=== PATIENT | male | born 1940 | race Caucasian/White ===

== ENCOUNTER 2019-10-04 13:17 | Inpatient (IN) ==
[2019-10-04] MEDS ORDERED: IOPAMIDOL 100 ML BOTTLE IV ONE (13:18)
--- NOTE | 2019-10-04 15:15 | Emergency Department Note ---
Abdominal Pain HPI - General Chief Complaint: Abdominal Pain Stated Complaint: UTI, bowel infection Time Seen by Provider: 10/04/19 14:19 Source: EMS Mode of arrival: EMS - History of Present Illness HPI Narrative: Brought by EMS. Described either having a urinary tract or bowel infection because of his abdominal pain and that is the primary reason he is coming here to the emergency room. He has a history of C. difficile in July he tells the social services manager. He lives in his own RV. He has a son who works who checks on him. Reportedly some history of dementia as well. Pulse in triage was 110. - Related Data Home Medications Medication Instructions Recorded Confirmed Aspirin [Lo-Dose Aspirin EC] 81 mg PO DAILY 10/04/19 10/04/19 Allergies Allergy/AdvReac Type Severity Reaction Status Date / Time Penicillins Allergy Mild HIVES Verified 10/04/19 13:24 omeprazole Allergy Unknown Hives Verified 10/04/19 13:24 Abdominal Pain PMH - Past Medical History [facility] Narrative: Medical History (Last Updated 10/04/19 @ 15:18 by Dangelo Casanova DO) CAD (coronary artery disease) (Chronic) Weight loss, unintentional (Chronic) Exposure to Agent Millard (Chronic) Cigarette smoker (Chronic) Depression, major, recurrent (Chronic) Anxiety, generalized (Chronic) Bedridden (Chronic) History of TIA (transient ischemic attack) (Chronic) History of peptic ulcer (Chronic) History of myocardial infarction (Chronic) C. difficile diarrhea (Chronic) Skin breakdown (Chronic) UTI (urinary tract infection) (Resolved) Past Surgical History (Last Updated 10/04/19 @ 15:18 by Dangelo Casanova DO) History of coronary artery bypass graft (Chronic) Medical history: Reports: CAD (coronary artery disease), COPD (denied 07-04-2019), CVA, TIA, other (DENIES: diverticulitis) - Social History Smoking status: Current every day smoker Physical Exam Limitations: physical limitation General appearance: alert, cachectic, in no apparent distress, nontoxic, thin Head: atraumatic, normocephalic Eye: Present: EOMI ENT: Present: mucous membranes dry (Mildly), other (Normal midline uvula and tongue) Neck: Present: trachea midline. Absent: lymphadenopathy, thyromegaly Chest: Present: symmetric chest wall rise Respiratory: Present: normal lung sounds bilaterally, rales/crackles (Trace or faint fibrotic). Absent: respiratory distress, wheezes, stridor, accessory muscle use, prolonged expiratory phase Cardiovascular: Present: regular rate (Seems somewhat slow.), normal rhythm. Absent: systolic murmur, diastolic murmur Abdominal: Present: soft, tenderness (Wincing and grimacing quite a bit with any palpation in the abdomen but particularly the upper one half.). Absent: distention, guarding, rebound, rigidity, organomegaly, mass Course Vital Signs Temperature 97.5 F 10/04/19 13:18 Pulse Rate 110 H 10/04/19 13:18 Respiratory Rate 18 10/04/19 13:18 Blood Pressure 121/63 10/04/19 13:18 Pulse Oximetry (%) 92 10/04/19 13:18 Temperature 97.5 F 10/04/19 13:18 Pulse Rate 86 10/04/19 20:00 Respiratory Rate 27 H 10/04/19 20:00 Blood Pressure 131/62 10/04/19 20:00 Pulse Oximetry (%) 98 10/04/19 20:00 Abdominal Pain - [facility] Narrative Medical decision making narrative: 2:56 PM - interviewed and examined. Significant abdominal pain with diarrhea and history of same. Will do C. difficile and multiple labs. 3:39 PM - stool guaiac was positive. 4:50 PM - white count 26.6 a lactic acid was added. Chest x-ray was read as negative. 7:32 PM - fecal impaction and thickening of the wall of the rectum and anus noted by Dr. Martinez, radiologist. Wall was 6-8 mm in the rectum. No small bowel dilatation or signs of ischemic bowel. Severe orellana atherosclerosis involving the renal arteries, superior mesenteric, celiac, splenic noted. He has a 3 mm abdominal aortic aneurysm. There is significant/large amount of stool retention in the colon. This is even after patient had a "blowout" in the room and a second "blowout" on the CT table before these films were obtained. 7:39 PM - patient not able to void or feeling like he needs to. Bladder scan demonstrates 275 mL. Serrano catheter to be placed. 8:05 PM - approximate time, digital rectal exam reveals an anal sphincter that barely admits my digital finger. There is retained stool palpable at the tip of my finger. He is oosing soft semi-liquid stool that is medium brown. The digital rectal exam was severely painful to him due to tightening that seems to be down low towards the opening. He did not tolerate further exam. Labs demonstrate hemoglobin 11.4 and was12.3 earlier. This is after a liter of fluid. White count was 26.6 down to 23.9. Creatinine is 1.4. Lactic acid 1.1. 8:28 PM - spoke with Dr. Neil Montes, general surgeon, who is willing to accept this patient that he does need to be in the hospital with antibiotics, cleaned out and under anesthesia dilatation. Consider colostomy. I will be writing orders for him for pain, Levaquin, Flagyl, nausea, Serrano catheter, labs for the morning. - Lab Data Result diagrams: 10/04/19 18:14 10/04/19 15:48 Lab Results 10/04/19 10/04/19 10/04/19 Range/Units 15:48 15:49 17:15 WBC 26.6 H (4.50-11.00) K/mcL RBC 4.30 L (4.63-6.08) M/mcL Hgb 12.3 L (13.7-17.5) g/dL Hct 36.6 L (40.1-51.0) % MCV 85.1 (80.0-100.0) fL MCH 28.6 (26.0-34.0) pg MCHC 33.6 (31.0-36.0) g/dL RDW 14.2 (11.5-14.5) % Plt Count 243 (140-440) K/mcL MPV 12.6 H (7.4-10.4) fL Gran % 84.9 H (38.0-78.0) % Lymph % (Auto) 4.4 L (15.5-49.0) % [place] % (Auto) 10.2 (1.0-12.0) % Eos % (Auto) 0.3 (0.0-7.0) % Baso % (Auto) 0.2 (0.0-2.0) % Gran # 22.57 H (1.80-8.00) K/mcL Lymph # (Auto) 1.18 L (1.50-4.80) K/mcL [place] # (Auto) 2.71 H (0.10-0.90) K/mcL Eos # (Auto) 0.09 (0.00-0.70) K/mcL Baso # (Auto) 0.05 (0.00-0.30) K/mcL Differential Comment VBG Lactic Acid 1.1 (0.5-2.0) mmol/L Sodium 135 (133-145) mmol/L Potassium 3.8 (3.3-5.1) mmol/L Chloride 100 (96-108) mmol/L Carbon Dioxide 19 L (22-30) mmol/L Anion Gap 16.0 (8-16) BUN 57 H (8-23) mg/dl Creatinine 1.4 H (0.7-1.2) mg/dl GFR Calculation 48 Glucose 94 (70-105) mg/dL Calcium 8.7 (8.6-10.4) mg/dl Total Bilirubin 0.8 (0.0-1.0) mg/dL AST 21 (0-37) U/l ALT 10 (0-40) U/l Alkaline Phosphatase 99 (39-117) U/L Total Protein 7.0 (5.9-8.4) gm/dL Albumin 3.8 (3.2-5.2) gm/dL Globulin 3.2 (2.2-3.7) gm/dL Albumin/Globulin Ratio 1.2 (1.0-2.3) Lipase 7 (7-60) U/L 10/04/19 Range/Units 18:14 WBC 23.9 H (4.50-11.00) K/mcL RBC 3.99 L (4.63-6.08) M/mcL Hgb 11.4 L (13.7-17.5) g/dL Hct 34.3 L (40.1-51.0) % MCV 86.0 (80.0-100.0) fL MCH 28.6 (26.0-34.0) pg MCHC 33.2 (31.0-36.0) g/dL RDW 14.2 (11.5-14.5) % Plt Count 216 (140-440) K/mcL MPV 12.2 H (7.4-10.4) fL Gran % 83.2 H (38.0-78.0) % Lymph % (Auto) 5.8 L (15.5-49.0) % [place] % (Auto) 10.4 (1.0-12.0) % Eos % (Auto) 0.4 (0.0-7.0) % Baso % (Auto) 0.2 (0.0-2.0) % Gran # 19.91 H (1.80-8.00) K/mcL Lymph # (Auto) 1.39 L (1.50-4.80) K/mcL [place] # (Auto) 2.48 H (0.10-0.90) K/mcL Eos # (Auto) 0.09 (0.00-0.70) K/mcL Baso # (Auto) 0.05 (0.00-0.30) K/mcL Differential Comment * VBG Lactic Acid (0.5-2.0) mmol/L Sodium (133-145) mmol/L Potassium (3.3-5.1) mmol/L Chloride (96-108) mmol/L Carbon Dioxide (22-30) mmol/L Anion Gap (8-16) BUN (8-23) mg/dl Creatinine (0.7-1.2) mg/dl GFR Calculation Glucose (70-105) mg/dL Calcium (8.6-10.4) mg/dl Total Bilirubin (0.0-1.0) mg/dL AST (0-37) U/l ALT (0-40) U/l Alkaline Phosphatase (39-117) U/L Total Protein (5.9-8.4) gm/dL Albumin (3.2-5.2) gm/dL Globulin (2.2-3.7) gm/dL Albumin/Globulin Ratio (1.0-2.3) Lipase (7-60) U/L Disposition Pt seen by TESTER/LIFT TRUCKER/PA only: No Clinical Impression: Anal stricture, Abnormal CT of the abdomen, Obstipation, Self-care deficit for feeding, bathing, and toileting Abdominal pain Qualifiers: Abdominal location: generalized Qualified Code(s): R10.84 - Generalized abdominal pain Leukocytosis Qualifiers: Leukocytosis type: unspecified Qualified Code(s): D72.829 - Elevated white blood cell count, unspecified Fecal incontinence Qualifiers: Fecal incontinence type: unspecified Qualified Code(s): R15.9 - Full incontinence of feces Urinary incontinence Qualifiers: Urinary Incontinence type: unspecified incontinence Qualified Code(s): R32 - Unspecified urinary incontinence Anemia Qualifiers: Anemia type: unspecified type Qualified Code(s): D64.9 - Anemia, unspecified Disposition: Xfer As Outpt/Obs ([facility]) Condition: Fair Referrals: Keshav Walter ARNP [Primary Care Provider] -
[2019-10-04 16:09] LABS: ALT/SGPT 10 U/l (0-40); AST/SGOT 21 U/l (0-37); Albumin 3.8 gm/dL (3.2-5.2); Albumin/Globulin Ratio 1.2 (1.0-2.3); Alkaline Phosphatase 99 U/L (39-117); Bilirubin,Total 0.8 mg/dL (0.0-1.0); Blood Urea Nitrogen 57 mg/dl (8-23); Calcium 8.7 mg/dl (8.6-10.4); Carbon Dioxide 19 mmol/L (22-30); Chloride 100 mmol/L (96-108); Globulin 3.2 gm/dL (2.2-3.7); Glomerular Filtration Rate 48; Glucose 94 mg/dL (70-105)
[2019-10-04 16:42] LABS: Basophils # (Auto) 0.05 K/mcL (0.00-0.30); Basophils % (Auto) 0.2 % (0.0-2.0); Eosinophils # (Auto) 0.09 K/mcL (0.00-0.70); Eosinophils % (Auto) 0.3 % (0.0-7.0); Granulocytes % (Auto) 84.9 % (38.0-78.0); Hematocrit 36.6 % (40.1-51.0); Hemoglobin 12.3 g/dL (13.7-17.5); Lymphocytes # (Auto) 1.18 K/mcL (1.50-4.80); Lymphocytes % (Auto) 4.4 % (15.5-49.0); Mean Cell Volume 85.1 fL (80.0-100.0); Mean Corpuscular HGB Conc 33.6 g/dL (31.0-36.0); Mean Platelet Volume 12.6 fL (7.4-10.4); Monocytes # (Auto) 2.71 K/mcL (0.10-0.90); Monocytes % (Auto) 10.2 % (1.0-12.0); Platelet Count 243 K/mcL (140-440); Red Cell Distribution Width 14.2 % (11.5-14.5); WBC 26.6 K/mcL (4.50-11.00)
[2019-10-04] MEDS ORDERED: 0.9 % SODIUM CHLORIDE 1,000 ML IV ONE (17:58)
--- NOTE | 2019-10-04 19:30 | Cat Scan Report ---
History: Abdominal pain, bowel infection, urinary tract infection TECHNIQUE: The abdomen was imaged following oral contrast and 60 cc of nonionic intravenous contrast. Patient was scanned during the portal venous phase from the diaphragm through the symphysis pubis. Sagittal and coronal reformats were created. The radiation exposure was limited using dose reduction technology. FINDINGS: The heart is mildly enlarged and there is mild dilatation left ventricle. There is been a prior sternotomy performed6 and patient has a mild pectus excavatum deformity. Mild dependent atelectasis is present in the posterior basal segments of both lower lobes. The liver and spleen are normal in size and homogeneous. The gallbladder and bile ducts are normal. There is no evidence of a mass or inflammation in the pancreas. The adrenals are normal. The kidneys are normal in size and there is no evidence of a mass, cyst, calculus or hydronephrosis. There is severe atherosclerotic disease in the renal arteries bilaterally. The ureters are decompressed. Urinary bladder is unopacified but appears normal. Severe atherosclerotic disease is also present in the splenic arteries, aorta and iliac arteries. There is a 3 cm fusiform aneurysm of the distal abdominal aorta. 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 The oral contrast has passed through normal small stomach and small intestine into the cecum and ascending colon without obstruction. There is no inflammation of the small bowel. The colon is elongated and distended with a large amount of fecal material. There is mild circumferential thickening of the wall of the proximal rectum and greater circumferential thickening of the wall of the anus. No discrete mass is seen in or adjacent to the colon. There is no evidence of an abscess or ascites within the abdomen or pelvis. No adenopathy is present. There is severe degenerative disc disease at L5-S1 and moderate disc space narrowing at L2-3. Prostate is mildly enlarged. IMPRESSION: Fecal impaction Thickened wall of the upper rectum measuring 6 to 8 mm in thickness. Elongated and thickened wall of the anus. This could be muscular hypertrophy and less likely neoplasm. 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 There are also high grade stenoses at the origins of the celiac and superior mesenteric arteries Dr. Casanova was called with the results Interpreted and Authenticated by: Keshav Martinez 10/04/19
[2019-10-04 19:37] LABS: Basophils # (Auto) 0.05 K/mcL (0.00-0.30); Basophils % (Auto) 0.2 % (0.0-2.0); Eosinophils # (Auto) 0.09 K/mcL (0.00-0.70); Eosinophils % (Auto) 0.4 % (0.0-7.0); Granulocytes % (Auto) 83.2 % (38.0-78.0); Hematocrit 34.3 % (40.1-51.0); Hemoglobin 11.4 g/dL (13.7-17.5); Lymphocytes # (Auto) 1.39 K/mcL (1.50-4.80); Lymphocytes % (Auto) 5.8 % (15.5-49.0); Mean Corpuscular HGB Conc 33.2 g/dL (31.0-36.0); Mean Platelet Volume 12.2 fL (7.4-10.4); Monocytes # (Auto) 2.48 K/mcL (0.10-0.90); Monocytes % (Auto) 10.4 % (1.0-12.0); Platelet Count 216 K/mcL (140-440); RBC 3.99 M/mcL (4.63-6.08); Red Cell Distribution Width 14.2 % (11.5-14.5); WBC 23.9 K/mcL (4.50-11.00)
[2019-10-04] MEDS ORDERED: LACTATED RINGERS 1,000 ML IV ONE (19:38)
[2019-10-04] MEDS ORDERED: ONDANSETRON 4 MG/2 ML VIAL IV PRN (20:36)
[2019-10-04] MEDS ORDERED: NALOXONE HCL 0.4 MG/ML VIAL IV PRN (20:40)
[2019-10-04] MEDS: metroNIDAZOLE 500 MG/100 ML BAG IV SCH (21:05)
[2019-10-04] MEDS: LEVOFLOXACIN 500 MG/100 ML BAG IV SCH (22:15)
[2019-10-04] MEDS ORDERED: HALOPERIDOL LACTATE 5 MG/ML VIAL IV PRN (23:12)
[2019-10-04] MEDS ORDERED: PROMETHAZINE 25 MG/ML VIAL IV PRN (23:17)
[2019-10-04] MEDS ORDERED: HALOPERIDOL LACTATE 5 MG/ML VIAL ONE (23:34)
[2019-10-04] MEDS: LACTATED RINGERS 1,000 ML IV SCH (23:40)
[2019-10-05] MEDS: HYDROmorphone 2 MG/ML VIAL IV PRN ×5 (00:14→23:26)
[2019-10-05] MEDS: metroNIDAZOLE 500 MG/100 ML BAG IV SCH ×4 (04:50→23:24)
[2019-10-05 05:10] LABS: ALT/SGPT 8 U/l (0-40); AST/SGOT 16 U/l (0-37); Albumin 2.8 gm/dL (3.2-5.2); Alkaline Phosphatase 69 U/L (39-117); Bilirubin,Direct 0.3 mg/dL (0.0-0.3); Bilirubin,Total 0.6 mg/dL (0.0-1.0); Blood Urea Nitrogen 46 mg/dl (8-23); Calcium 7.5 mg/dl (8.6-10.4); Carbon Dioxide 19 mmol/L (22-30); Chloride 102 mmol/L (96-108); Globulin 2.7 gm/dL (2.2-3.7); Glomerular Filtration Rate 72; Glucose 79 mg/dL (70-105); Lactate Dehydrogenase 152 U/L (94-250); Phosphorous 2.5 mg/dL (2.7-4.5); Triglycerides 54 mg/dl (<150); Uric Acid 4.7 mg/dL (2.5-8.0)
[2019-10-05 05:27] LABS: Basophils # (Auto) 0.02 K/mcL (0.00-0.30); Basophils % (Auto) 0.1 % (0.0-2.0); Eosinophils # (Auto) 0 K/mcL (0.00-0.70); Eosinophils % (Auto) 0 % (0.0-7.0); Granulocytes % (Auto) 82.3 % (38.0-78.0); Hematocrit 27.5 % (40.1-51.0); Hemoglobin 9.3 g/dL (13.7-17.5); Lymphocytes % (Auto) 5.4 % (15.5-49.0); Mean Cell Volume 84.4 fL (80.0-100.0); Mean Corpuscular HGB Conc 33.8 g/dL (31.0-36.0); Monocytes # (Auto) 2.25 K/mcL (0.10-0.90); Monocytes % (Auto) 12.2 % (1.0-12.0); Platelet Count 198 K/mcL (140-440); RBC 3.26 M/mcL (4.63-6.08); Red Cell Distribution Width 13.9 % (11.5-14.5); WBC 18.4 K/mcL (4.50-11.00)
[2019-10-05] MEDS: LACTATED RINGERS 1,000 ML IV SCH ×2 (10:01→18:43)
[2019-10-05] MEDS: POTASSIUM PHOSPHATE 40 MEQ in DEXTROSE 5% IN WATER 500 ML IV SCH ×2 (15:11→19:40)
--- NOTE | 2019-10-05 18:24 | General Surg History&Physical ---
History of Present Illness Patient information: Note initiated : 10/05/19 at 6:21 pm Service Date, if different from initiated Date: [] Patient: Kaiden Wright a 79 y/o M admitted on 10/05/19 for UTI, bowel infection. Chief Complaint: [] HPI: Mr. Wright is a 79 year old M admitted with high-grade anal stricture with major fe meet impaction and small bowel obstruction. The patient states that he is had progressive episodic diarrhea for over a year. He has had crampy abdominal pain throughout this time. She was seen in the emergency room O1 July with history of diarrhea over one year. because of the diarrhea. C. difficile titer was done and was positive. He was treated with Flagyl. Symptoms did not improve. Over the past 3 months. Patient has gotten progressively worse. He has had crampy severe abdominal pain and nausea every day. His abdomen became extremely tender over the past week. He has had episodic very forceful liquid bowel movements during this time. He was seen in the emergency room where he was noted to have a high-grade anal stenosis with fecal impaction. CT shows major fecal impaction extending to the cecum with major evaluation of his entire colon and some dilation of the small bowel. White count is 26,000. Patient is admitted, treated. Plans are made for laparotomy with colostomy in the morning with dilation of the anus with biopsy and fecal washout. Review of Systems - Constitutional fatigue, lethargy, malaise, weight loss (over 50 pound weight loss) - EENT Nose, mouth and throat: bleeding gums, dental pain, dysphagia, halitosis, headache(s) - Cardiovascular no chest pain, no dyspnea on exertion, no palpatations - Respiratory no cough, no dyspnea on exertion, no pain with cough - Gastrointestinal abdominal pain, bloating, change in stool character, constipation, diarrhea, early satiety, fecal incontinence, loose stools, nausea, tenesmus, vomiting - Genitourinary change in urinary stream, difficulty urinating, dysuria, urinary hesitancy, urinary incontinence, urinary urgency - Musculoskeletal myalgias - Integumentary no new lesions, no pruritus, no rash - Neurological abnormal hearing, confusion, memory loss, other (history of TIAs) - Psychiatric anxiety, change in appetite, depression, memory loss - Endocrine fatigue, no palpitations - Hematologic/Lymphatic no easy bleeding, no easy bruising, no lymphadenopathy - Allergic/Immunologic no tongue swelling, no throat swelling, no uticaria, no wheezing, no lip swelling Past History Past medical history: Major depression. History of TIAs and stroke. Coronary artery disease status post RI many years ago. C. difficile colitis by history. Recurrent UTI. History of progressive memory loss Past surgical history: Coronary artery bypass graft 20 years ago Past family history: Unknown CANNOT REMEMBER Past social history: Daily smoker Medications and Allergies Home Medications Medication Instructions Recorded Confirmed Type Aspirin [Lo-Dose Aspirin EC] 81 mg PO DAILY 10/04/19 10/04/19 History Allergies Allergy/AdvReac Type Severity Reaction Status Date / Time Penicillins Allergy Mild HIVES Verified 10/04/19 13:24 omeprazole Allergy Unknown Hives Verified 10/04/19 13:24 Exam Temp Pulse Resp BP Pulse Ox 97.3 F 80 18 115/65 98 10/05/19 16:00 10/05/19 16:00 10/05/19 16:00 10/05/19 16:00 10/05/19 16:00 - General physical appearance well developed, well nourished, moderate distress, moderate pain, cachectic, chronically ill - Eyes PERRL, normal ocular movement - ENT normal pinna, normal nares, normal mucosa, no hearing loss, no congestion, poor mcfp, other (extensive gum disease; multiple cavitated teeth) - Head Head exam IM: Present: atraumatic, normocephalic - Neck no masses, no bruits, trachea midline, no lymphadenopathy, no venous distension - Cardiovascular Cardiovascular exam IM: Present: normal rate and rhythm - Respiratory normal expansion, normal respiratory effort, clear to auscultation - Abdomen Abdomen: Present: soft, tender, bowel sounds, guarding ( abdomen is rigid with guarding; hypoactive bowel sounds; palpable masses which may be stool) Hernia: Present: none - Genitourinary Present: normal penis with no external lesions - Rectum Rectum: Present: other (tight anal stenosis with tenderness and mass) - Integumentary Present: no rash, no growths, no abnormal pigmentation - Neurologic Present: normal coordination, normal sensation - Musculoskeletal Present: normal gait, normal posture - Psychiatric Present: oriented to time, oriented to person, oriented to place, speech is normal, memory intact Assessment and Plan (1) Fecal impaction in rectum Patient will have examination under anesthesia tomorrow. Exploratory laparotomy with colostomy followed by anal rectal washout. Continue antibiotics Status: Acute (2) Anal stricture Status: Acute (3) Urinary incontinence Urinalysis with treatment as indicated. Serrano catheter Status: Acute Qualifiers: Urinary Incontinence type: unspecified incontinence Qualified Code(s): R32 - Unspecified urinary incontinence (4) Weight loss, unintentional Status: Acute (5) Depression, major, recurrent Status: Chronic (6) History of myocardial infarction Status: Chronic
[2019-10-05] MEDS ORDERED: 0.9 % SODIUM CHLORIDE 250 ML IV SCH (18:30)
[2019-10-05] MEDS ORDERED: ALPRAZolam 0.5 MG TABLET PO PRN (18:42)
--- NOTE | 2019-10-05 18:47 | XRay Report ---
HISTORY: Preop FINDINGS: The lungs are clear. The mediastinum, aaron and pleura are normal. Incidentally noted are skin fold artifact superimposed over both lungs. There are sternal wires present. Heart size is within upper limits of normal and there is no congestive heart failure. There has been little change since 05/27/16. IMPRESSION: No acute abnormality Interpreted and Authenticated by: Keshav Martinez 10/05/19
[2019-10-05 19:58] LABS: INR 1.1 (0.9-1.1); Prothrombin Time 14.6 sec (11.9-14.5)
--- NOTE | 2019-10-05 22:52 | Transfer Summary ---
Transfer Discharge Sum: Prov Patient information: Note initiated : 10/05/19 at 10:49 pm Service Date, if different from initiated Date: [] Patient: Kaiden Wright 79 y/o M admitted on 10/05/19 for UTI, bowel infection. Chief Complaint: [] Date of admission: 10/05/19 09:13 Discharge Date: 10/05/19 Primary care physician: Keshav Walter Consults: 10/04/19 Consult to Physician [CONS] Stat Comment: Consulting Provider: Mark Montes Reason For Exam: Physician to Consult Transfer Discharge Sum: Med - Medications Active and Home Medications: Home Medications Aspirin [Lo-Dose Aspirin EC] 81 mg PO DAILY 10/04/19 [History Confirmed 10/04/19] Active Medications Alprazolam (Xanax) 1 mg PO TIDP PRN PRN Reason: Anxiety Last Admin: 10/05/19 22:38 Dose: 1 mg Documented by: Haloperidol Lactate (Haldol) 2 mg IV Q4HP PRN PRN Reason: ANXIETY/SEDATION Last Admin: 10/04/19 23:38 Dose: 2 mg Documented by: Hydromorphone HCl (Dilaudid) 0.5 mg IV Q1HP PRN; Protocol PRN Reason: Per Pain Protocol Last Admin: 10/05/19 19:41 Dose: 0.5 mg Documented by: Levofloxacin (Levaquin) 500 mg in 100 mls @ 100 mls/hr IV Q24H [facility] Last Infusion: 10/04/19 22:29 Dose: 0 mls/hr Documented by: Lactated Ringer's (Lactated Ringers) 1,000 mls @ 100 mls/hr IV .Q10H [facility] Last Admin: 10/05/19 18:43 Dose: Not Given Documented by: Metronidazole (Flagyl) 500 mg in 100 mls @ 100 mls/hr IV Q8H [facility]; Protocol Last Admin: 10/05/19 13:56 Dose: 100 mls/hr Documented by: Sodium Chloride (Sodium Chloride 0.9%) 250 mls @ 20 mls/hr IV .[id number] [facility] Stop: 10/06/19 06:59 Naloxone HCl (Narcan) 0.1 mg IV Q2MIN PRN PRN Reason: Opiate Reversal Ondansetron HCl (Zofran) 4 mg IV Q4-6HP PRN PRN Reason: Nausea And Vomiting Promethazine HCl (Phenergan) 25 mg IV Q4HP PRN PRN Reason: Nausea And Vomiting Transfer Discharge Sum: Hosp Hospital course: Mr. Wright is a 79 year old M HPI from surgeon: "HPI: Mr. Wright is a 79 year old M admitted with high-grade anal stricture with major fecal impaction and small bowel obstruction. The patient states that he is had progressive episodic diarrhea for over a year. He has had crampy abdominal pain throughout this time. She was seen in the emergency room O1 July with history of diarrhea over one year. because of the diarrhea. C. difficile titer was done and was positive. He was treated with Flagyl. Symptoms did not improve. Over the past 3 months. Patient has gotten progressively worse. He has had crampy severe abdominal pain and nausea every day. His abdomen became extremely tender over the past week. He has had episodic very forceful liquid bowel movements during this time. He was seen in the emergency room where he was noted to have a high-grade anal stenosis with fecal impaction. CT shows major fecal impaction extending to the cecum with major evaluation of his entire colon and some dilation of the small bowel. White count is 26,000. Patient is admitted, treated. Plans are made for laparotomy with colostomy in the morning with dilation of the anus with biopsy and fecal washout." Scheduled for exploratory laparotomy in the morning. Due to unfortunate events our surgeon is unexpectedly unavailable at this time unable to perform this upcoming surgery. Discussed case with Dr. Edmond at [facility] who will evaluate the patient and requested hospitalist to admit. Assessment and Plan (1) Fecal impaction in rectum Patient will have examination under anesthesia tomorrow. Exploratory laparotomy with colostomy followed by anal rectal washout. Continue antibiotics Status: Acute (2) Anal stricture Status: Acute (3) Urinary incontinence Urinalysis with treatment as indicated. Serrano catheter Status: Acute Qualifiers: Urinary Incontinence type: unspecified incontinence Qualified Code(s): R32 - Unspecified urinary incontinence (4) Weight loss, unintentional Status: Acute (5) Depression, major, recurrent Status: Chronic (6) History of myocardial infarction Status: Chronic - Time Spent with Patient Total time spent providing and/or coordinating transfer services: Greater than 30 minutes Transfer Discharge Sum: Exam - Constitutional Vitals: Vital Signs Temp Pulse Resp BP BP Pulse Ox 10/05/19 22:32 99.1 F H 79 24 H 137/73 97 10/05/19 16:00 97.3 F 80 18 115/65 98 10/05/19 12:00 98.3 F 85 18 115/63 96 10/05/19 04:17 16 Intake and Output 10/05/19 10/05/19 10/06/19 13:59 21:59 05:59 Intake Total 1100 629 Output Total 450 350 Balance 650 279 Intake: IV 1100 509 Lactated Ringers 1,000 ml @ 100 1000 mls/hr IV .Q10H [facility] Rx#: [id number] Potassium Phosphate 40 Meq In 509 Dextrose 5% in Water 500 ml @ 127.273 mls/hr IV Q4H [facility] Rx#: [id number] Oral 120 Output: Urine Catheter Amount 450 350 Other: Urine Appearance Cloudy Urine Color Brown Red Brown Straight Dark Chap[place]rita Urine Odor Strong Stool Size Small Smear Stool Color Brown Brown Stool Consistency Soft Soft # Bowel Movements 1 # of times incontinent of 1 Bowels Transfer Discharge Sum: Data Procedures and tests throughout hospitalization: Pending Orders 10/04/19 Consult to Physician [CONS] Stat 10/04/19 17:15 Blood Culture Stat 10/04/19 20:35 HYDROmorphone [Dilaudid] 0.5 mg IV Q1HP PRN 10/04/19 20:36 Ondansetron [Zofran] 4 mg IV Q4-6HP PRN 10/04/19 20:39 Serrano [Indwelling Urinary Catheter] .CONT 10/04/19 20:40 Bedrest .ROUTINE Elevate head of bed .ROUTINE IV Insertion/Management NOW Notify Provider .routine Up to chair BID Vital Signs Q4 Resuscitation Status Routine Naloxone HCl [Narcan] 0.[address] Q2MIN PRN RD to Adjust Diet/Supplements as Needed Routine Pulse Oximetry .ROUTINE 10/04/19 20:42 Clear Liquid Diet 10/04/19 20:45 Lactated Ringers 1,000 ml IV 100 mls/hr Levofloxacin [Levaquin] 500 mg in 100 ml IV Q24H 10/04/19 21:16 Urinary catheterization ED NOW 10/04/19 23:12 Haloperidol Lactate [Haldol] 2 mg IV Q4HP PRN 03/02/20 23:17 Promethazine [Phenergan] 25 mg IV Q4HP PRN 10/05/19 01:44 Case Management Referral .Routine 10/05/19 09:13 Admit as Inpatient Routine 10/05/19 11:42 Case Management Referral .Routine 10/05/19 14:00 metroNIDAZOLE [Flagyl] 500 mg in 100 ml IV Q8H 10/05/19 18:14 Urinalysis Routine 10/05/19 18:15 EKG ONCE 10/05/19 18:17 Consent for Procedure NOW 10/05/19 18:18 Blood Product Documentation NOW 10/05/19 18:30 0.9 % Sodium Chloride [Sodium Chloride 0.9%] 250 ml IV 20 mls/hr 10/05/19 18:42 ALPRAZolam [Xanax] 1 mg PO TIDP PRN 10/06/19 00:01 NPO after Midnight Diet 10/06/19 05:00 Complete Blood Count DAILY Inpatient Panel DAILY 10/07/19 05:00 Complete Blood Count DAILY Inpatient Panel DAILY 10/08/19 05:00 Inpatient Panel DAILY Transfer Discharge Sum: A/P - Plan Disposition: [facility] Quality Measure Queries - VTE Deep Vein Thrombosis/Pulmonary Embolism Present on Admission: No
[2019-10-05] MEDS: LEVOFLOXACIN 500 MG/100 ML BAG IV SCH (23:24)
[2019-10-06 01:45] LABS: Appearance,Urine HAZY; Bacteria,Urine FEW /hpf (0); Bilirubin,Urine NEG (NEG); Color,Urine AMBER; Culture Indicated,Urine YES; Glucose,Urine (UA) NEGATIVE (NEG); Ketones,Urine NEG (NEG); Leukocyte Esterase,Urine 250 /uL (NEG); Mucus,Urine FEW /hpf (0); Nitrate,Urine NEG (NEG); Protein,Urine 100 mg/dL (NEG); Specific Gravity,Urine 1.023 (1.000-1.035); Urine Blood >=1.0 mg/dL (<0.03); Urine Hyaline Cast 24 /lpf (0-2); Urine RBC 141 /hpf (0-1); Urine Squamous Epithelial Cell 1 /hpf (0-4); Urine Transitional Epi Cells < 1 /hpf (0-2); Urine WBC 29 /hpf (0-4)
[2019-10-06 02:36] LABS: Ictotest,Urine NEG (NEG)
== END 2019-10-06 00:05 | disposition short-term general hospital (02) | DRG 394 ==
LOC: ED 13:17 → MEDSUR 13:17
PROVIDERS: ADMIT Family Medicine Adult Medicine; ATTEND Internal Medicine